=== PATIENT | female | born 1975 | race Caucasian/White ===

== ENCOUNTER 2020-11-10 09:35 | Emergency (ER) | payer OTHER ==
[2020-11-10 10:12] VITALS: BMI 31.2
[2020-11-10] MEDS ORDERED: SODIUM CHLORIDE 0.9% 1000 ML INFUS.BAG IV ONE (10:29)
[2020-11-10] MEDS ORDERED: ACETAMINOPHEN 1000 MG/100 ML BAG IVPB ONE (10:29)
[2020-11-10 10:49] VITALS: TEMP 99
[2020-11-10] MEDS ORDERED: ACETAMINOPHEN INJECTION 100 ML IVPB ONE (11:17)
[2020-11-10] MEDS ORDERED: ALBUTEROL SO4 HFA INHALER IH ONE ×2 (11:20→11:28)
[2020-11-10] MEDS ORDERED: ALBUTEROL SO4 0.042% IH SOL 1.25 MG/3 ML VIAL.NEB NEB ONE (11:22)
[2020-11-10 11:30] LABS: BASO % 0.4 % (0-2.0); EOS % 0.2 % (0-4.5); HEMATOCRIT 25.5 % (32.4-45.2); HEMOGLOBIN 7.8 GM/dL (10.7-15.3); LYMPH % 11.6 % (8-40); MCH 20.8 pg (25.7-33.7); MCHC 30.4 g/dl (32.0-36.0); MEAN CELL VOLUME 68.5 fl (80-96); MEAN PLT VOLUME 8.7 fl (7.5-11.1); MONO % 7.4 % (3.8-10.2); NEUT % 80.4 % (42.8-82.8); PLATELET COUNT 241 K/MM3 (134-434); RBC 3.72 M/mm3 (3.60-5.2); WHITE BLOOD COUNT 6.1 K/mm3 (4.0-10.0)
[2020-11-10 11:38] LABS: INR 1.28 (0.83-1.09); PROTHROMBIN TIME (PATIENT) 15.6 SEC (9.7-13.0)
[2020-11-10 11:41] LABS: ACTIVATED PTT 27.2 SECONDS (25.2-36.5)
[2020-11-10 11:50] LABS: CHLORIDE 100 mmol/L (98-107); SODIUM 133 mmol/L (136-145)
[2020-11-10 11:52] LABS: CALCIUM 8.4 mg/dL (8.5-10.1)
[2020-11-10 11:53] LABS: ALBUMIN 3.8 g/dl (3.4-5.0); ANION GAP 10 MMOL/L (8-16); BLOOD UREA NITROGEN 5.8 mg/dL (7-18); CO2 24 mmol/L (21-32); GLUCOSE,RANDOM 304 mg/dL (74-106)
[2020-11-10 11:56] LABS: CREATININE 0.8 mg/dL (0.55-1.3); SGOT/AST 28 U/L (15-37); SGPT/ALT 46 U/L (13-61)
[2020-11-10 11:57] LABS: BILIRUBIN,TOTAL 0.3 mg/dL (0.2-1); LDH 218 U/L (84-246)
[2020-11-10 11:58] LABS: TOT PROT 8.3 g/dl (6.4-8.2)
[2020-11-10 11:59] LABS: ALK PHOS 82 U/L (45-117)
[2020-11-10 13:43] VITALS: BP 100/60; PULSE 73
[2020-11-10 14:02] LABS: ANISOCYTOSIS 3+; MACROCYTOSIS 1+; OVALOCYTE 1+; ROULEAU 2+
[2020-11-10 14:04] LABS: URINE APPEARANCE CLEAR; URINE COLOR YELLOW
[2020-11-10 14:05] LABS: URINE BILIRUBIN NEGATIVE (NEGATIVE); URINE GLUCOSE (UA) 3+ (NEGATIVE); URINE KETONE NEGATIVE (NEGATIVE); URINE PROTEIN TRACE (NEGATIVE)
[2020-11-10 14:06] LABS: EPI CELLS 26.8 /uL (0-25.1); HYALINE CASTS 1.28 /uL (0-3.1); URINE BACTERIA 391.8 /uL (0-1359); URINE LEUK ESTERASE NEGATIVE (NEGATIVE); URINE NITRITE NEGATIVE (NEGATIVE); URINE RBC 1.1 /uL (0-23.9); URINE WBC 14.5 /uL (0-25.8)
== END 2020-11-10 14:30 | disposition home or self-care (01) ==
LOC: JER 09:35
PROC: 3E0333Z Introduction of Anti-inflammatory into Peripheral Vein, Percutaneous Approach (ICD-10-PCS; principal; 2020-11-10)
DX: R06.02 Shortness of breath (principal)
CPT/HCPCS: 36415; 71045-TC-FY; 80053; 81003; 82550; 82728; 83605; 83615; 84484; 84703; 85025; 85379; 85610; 85730; 86140; 87040; 87077; 87086; 99285-25; C9803; J0131; U0003

== ENCOUNTER 2023-04-01 10:55 | Emergency (ER) | payer OTHER ==
[2023-04-01 10:59] VITALS: RESP 18; BMI 29.2
[2023-04-01] MEDS ORDERED: ACETAMINOPHEN 1000 MG/100 ML BAG IVPB ONE (11:55)
[2023-04-01] MEDS ORDERED: ACETAMINOPHEN INJECTION 100 ML IVPB ONE (12:11)
[2023-04-01 12:28] LABS: BASO % 2.1 % (0-2.0); EOS % 2.4 % (0-4.5); HEMATOCRIT 27.9 % (32.4-45.2); HEMOGLOBIN 8.1 GM/dL (10.7-15.3); MEAN CELL VOLUME 62.2 fl (80-96); MEAN PLT VOLUME 8.9 fl (7.5-11.1); MONO % 7.2 % (3.8-10.2); NEUT % 55.3 % (42.8-82.8); PLATELET COUNT 345 10^3/uL (134-434); RBC 4.49 M/mm3 (3.60-5.2); RDW 21.4 % (11.6-15.6); WHITE BLOOD COUNT 7.5 K/mm3 (4.0-10.0)
[2023-04-01 12:32] LABS: MCH 18.1 pg (25.7-33.7)
[2023-04-01 12:49] LABS: POTASSIUM 4.2 mmol/L (3.5-5.1)
[2023-04-01 12:51] LABS: BLOOD UREA NITROGEN 10.7 mg/dL (7-18); CALCIUM 9.7 mg/dL (8.5-10.1)
[2023-04-01 12:55] LABS: CREATININE 0.7 mg/dL (0.55-1.3)
[2023-04-01 12:56] LABS: BILIRUBIN,TOTAL 0.3 mg/dL (0.2-1); TOT PROT 8.1 g/dl (6.4-8.2)
[2023-04-01 13:05] LABS: ANISOCYTOSIS 3+
[2023-04-01 14:48] VITALS: BP 111/76; PULSE 68; TEMP 98
== END 2023-04-01 16:04 | disposition home or self-care (01) ==
LOC: JER 10:55
PROC: 3E033GC Introduction of Other Therapeutic Substance into Peripheral Vein, Percutaneous Approach (ICD-10-PCS; principal; 2023-04-01)
DX: R07.89 Other chest pain (principal)
CPT/HCPCS: 36415; 71046-TC-FY; 80053; 84484; 84703; 85025; 86850; 86900; 86901; 93005; 93010; 96374; 99285-25

== ENCOUNTER 2023-06-11 10:02 | Emergency (ER) | payer OTHER ==
[2023-06-11 10:05] VITALS: BP 127/57; BMI 29.2
[2023-06-11] MEDS ORDERED: SODIUM CHLORIDE 0.9% 500 ML INFUS.BAG IV ONE (10:26)
[2023-06-11] MEDS ORDERED: ONDANSETRON 4 MG/2 ML VIAL IVPUSH ONE (10:26)
[2023-06-11] MEDS ORDERED: ACETAMINOPHEN 1000 MG/100 ML BAG IVPB ONE (10:26)
[2023-06-11] MEDS ORDERED: ACETAMINOPHEN INJECTION 100 ML IVPB ONE (10:41)
[2023-06-11] MEDS ORDERED: ONDANSETRON 4 MG/2 ML VIAL ONE (10:41)
[2023-06-11 11:06] VITALS: PULSE 90; RESP 17; TEMP 98.4
[2023-06-11 12:11] LABS: EPI CELLS >36 /uL (0-25.1); HYALINE CASTS 1 /uL (0-3.1); URINE APPEARANCE CLEAR; URINE BACTERIA 311 /uL (0-1359); URINE BILIRUBIN NEGATIVE (NEGATIVE); URINE COLOR YELLOW; URINE GLUCOSE (UA) TRACE (NEGATIVE); URINE KETONE TRACE (NEGATIVE); URINE LEUK ESTERASE NEGATIVE (NEGATIVE); URINE NITRITE NEGATIVE (NEGATIVE); URINE PROTEIN 1+ (NEGATIVE); URINE RBC 92 /uL (0-23.9); URINE UROBILINOGEN 0.2 mg/dL (0.2-1.0); URINE WBC 20 /uL (0-25.8)
[2023-06-11 12:21] LABS: HCG,QUALITATIVE URINE Negative
[2023-06-11 12:45] LABS: POTASSIUM 4.5 mmol/L (3.5-5.1)
[2023-06-11 12:47] LABS: CALCIUM 9.5 mg/dL (8.5-10.1)
[2023-06-11 12:48] LABS: ALBUMIN 4.2 g/dl (3.4-5.0); BLOOD UREA NITROGEN 11.8 mg/dL (7-18)
[2023-06-11 12:51] LABS: CREATININE 0.8 mg/dL (0.55-1.3)
[2023-06-11 12:52] LABS: BILIRUBIN,TOTAL 0.3 mg/dL (0.2-1); TOT PROT 8.3 g/dl (6.4-8.2)
[2023-06-11 13:23] LABS: BASO % 1.4 % (0-2.0); EOS % 2.5 % (0-4.5); HEMATOCRIT 25.4 % (32.4-45.2); HEMOGLOBIN 7.1 GM/dL (10.7-15.3); LYMPH % 32.6 % (8-40); MCHC 28.1 g/dl (32.0-36.0); MEAN CELL VOLUME 59.5 fl (80-96); MEAN PLT VOLUME 8.6 fl (7.5-11.1); NEUT % 55.5 % (42.8-82.8); PLATELET COUNT 443 10^3/uL (134-434); RBC 4.27 M/mm3 (3.60-5.2); RDW 20.2 % (11.6-15.6); WHITE BLOOD COUNT 7.3 K/mm3 (4.0-10.0)
[2023-06-11 13:31] LABS: MCH 16.7 pg (25.7-33.7)
[2023-06-11 15:04] LABS: ANISOCYTOSIS 2+; OVALOCYTE 1+; PLATELET ESTIMATE INCREASED; TEAR DROP CELLS 1+
== END 2023-06-11 15:29 | disposition home or self-care (01) ==
LOC: JER 10:02
PROC: 3E033NZ Introduction of Analgesics, Hypnotics, Sedatives into Peripheral Vein, Percutaneous Approach (ICD-10-PCS; principal; 2023-06-11)
PROC: 3E033GC Introduction of Other Therapeutic Substance into Peripheral Vein, Percutaneous Approach (ICD-10-PCS; 2023-06-11)
DX: R10.33 Periumbilical pain (principal); R11.2 Nausea with vomiting, unspecified
CPT/HCPCS: 36415; 74177-TC; 80053; 81003; 83690; 84703; 85025; 87086; 99285-25; Q9967

== ENCOUNTER 2023-06-19 11:14 | Emergency (ER) | payer OTHER ==
[2023-06-19 11:35] VITALS: BMI 32.0
[2023-06-19] MEDS ORDERED: FAMOTIDINE 20 MG/50 ML IVPB 20 MG/50 ML MG IVPB ONE ×2 (12:58→14:27)
[2023-06-19] MEDS ORDERED: ACETAMINOPHEN 1000 MG/100 ML BAG IVPB ONE (12:58)
[2023-06-19] MEDS ORDERED: MAG HYDROX/AL HYDROX/SIMETH 30 ML UNIT-DOSE CUP PO ONE (12:58)
[2023-06-19] MEDS ORDERED: MAG HYDROX/AL HYDROX/SIMETH 30 ML UNIT-DOSE CUP ONE (14:27)
[2023-06-19] MEDS ORDERED: ACETAMINOPHEN INJECTION 100 ML IVPB ONE (14:27)
[2023-06-19 16:11] LABS: BASO % 2.2 % (0-2.0); EOS % 2.5 % (0-4.5); HEMATOCRIT 24.7 % (32.4-45.2); LYMPH % 39.7 % (8-40); MEAN CELL VOLUME 59.8 fl (80-96); MEAN PLT VOLUME 8.4 fl (7.5-11.1); MONO % 7.5 % (3.8-10.2); NEUT % 48.1 % (42.8-82.8); PLATELET COUNT 354 10^3/uL (134-434); RBC 4.14 M/mm3 (3.60-5.2); RDW 20.9 % (11.6-15.6); WHITE BLOOD COUNT 6.6 K/mm3 (4.0-10.0)
[2023-06-19 16:16] LABS: HEMOGLOBIN 6.7 GM/dL (10.7-15.3); MCH 16.1 pg (25.7-33.7)
[2023-06-19 16:30] LABS: POTASSIUM 4.5 mmol/L (3.5-5.1)
[2023-06-19 16:32] LABS: CALCIUM 9.1 mg/dL (8.5-10.1)
[2023-06-19 16:33] LABS: ALBUMIN 3.9 g/dl (3.4-5.0); BLOOD UREA NITROGEN 8.6 mg/dL (7-18)
[2023-06-19 16:36] LABS: CREATININE 0.7 mg/dL (0.55-1.3)
[2023-06-19 16:37] LABS: BILIRUBIN,TOTAL 0.2 mg/dL (0.2-1); TOT PROT 8.1 g/dl (6.4-8.2)
[2023-06-19 17:32] LABS: ANISOCYTOSIS 3+; MACROCYTOSIS 0
[2023-06-19 20:36] VITALS: BP 126/69; PULSE 79; RESP 18; TEMP 98.2
== END 2023-06-20 00:06 | disposition home or self-care (01) ==
LOC: JER 11:14
PROC: 3E033GC Introduction of Other Therapeutic Substance into Peripheral Vein, Percutaneous Approach (ICD-10-PCS; principal; 2023-06-19)
PROC: 3E033NZ Introduction of Analgesics, Hypnotics, Sedatives into Peripheral Vein, Percutaneous Approach (ICD-10-PCS; 2023-06-19)
DX: R10.13 Epigastric pain (principal); D64.9 Anemia, unspecified; R11.0 Nausea; R10.11 Right upper quadrant pain
CPT/HCPCS: 36415; 36430; 76705-TC; 80053; 83690; 85025; 86850; 86900; 86901; 86922; 99284-25; P9058

== ENCOUNTER 2023-09-02 11:47 | Emergency (ER) | payer OTHER ==
[2023-09-02 12:03] VITALS: BP 119/53; PULSE 82; RESP 20; TEMP 98.1; BMI 28.3
[2023-09-02] MEDS ORDERED: DIPHTH,PERTUSS(ACELL),TET 0.5 ML DISP.SYRIN IM ONE ×2 (12:27→12:33)
[2023-09-02] MEDS ORDERED: SULFAMETHOXAZOLE/TRIMETHOPRIM 800MG/160MG D.S. TABLET PO ONE (12:27)
[2023-09-02] MEDS ORDERED: SULFAMETHOXAZOLE/TRIMETHOPRIM 800MG/160MG D.S. TABLET ONE (12:33)
== END 2023-09-02 13:49 | disposition home or self-care (01) ==
LOC: JERFT 11:47
PROC: 3E0234Z Introduction of Serum, Toxoid and Vaccine into Muscle, Percutaneous Approach (ICD-10-PCS; principal; 2023-09-02)
DX: S61.412A Laceration without foreign body of left hand, initial encounter (principal); W26.8XXA Contact with other sharp object(s), not elsewhere classified, initial encounter; Y92.9 Unspecified place or not applicable
CPT/HCPCS: 90471; 90715; 99283-25

== ENCOUNTER 2023-11-11 10:41 | Emergency (ER) | payer OTHER ==
[2023-11-11 10:45] VITALS: BP 117/71; PULSE 76; RESP 20; TEMP 98.4; BMI 35.2
[2023-11-11] MEDS ORDERED: ONDANSETRON 4 MG/2 ML VIAL IVPUSH ONE (12:28)
[2023-11-11] MEDS ORDERED: ACETAMINOPHEN 1000 MG/100 ML BAG IVPB ONE (12:28)
[2023-11-11] MEDS ORDERED: SODIUM CHLORIDE 0.9% 500 ML INFUS.BAG IV ONE (12:28)
[2023-11-11] MEDS ORDERED: ONDANSETRON 4 MG/2 ML VIAL ONE (12:59)
[2023-11-11] MEDS ORDERED: ACETAMINOPHEN INJECTION 100 ML IVPB ONE (12:59)
[2023-11-11 13:48] LABS: EPI CELLS 18 /uL (0-25.1); HYALINE CASTS 0 /uL (0-3.1); PH,URINE 6.5 (5.0-8.0); URINE APPEARANCE CLEAR; URINE BACTERIA 143 /uL (0-1359); URINE BILIRUBIN NEGATIVE (NEGATIVE); URINE COLOR YELLOW; URINE GLUCOSE (UA) 3+ (NEGATIVE); URINE KETONE NEGATIVE (NEGATIVE); URINE LEUK ESTERASE NEGATIVE (NEGATIVE); URINE NITRITE NEGATIVE (NEGATIVE); URINE PROTEIN NEGATIVE (NEGATIVE); URINE RBC 9 /uL (0-23.9); URINE UROBILINOGEN 0.2 mg/dL (0.2-1.0); URINE WBC 19 /uL (0-25.8)
[2023-11-11 13:49] LABS: BASO % 0.4 % (0-2.0); EOS % 2.7 % (0-4.5); HEMATOCRIT 38.9 % (32.4-45.2); HEMOGLOBIN 11.5 GM/dL (10.7-15.3); LYMPH % 32.3 % (8-40); MCH 20.3 pg (25.7-33.7); MCHC 29.5 g/dl (32.0-36.0); MEAN CELL VOLUME 68.8 fl (80-96); MEAN PLT VOLUME 9.2 fl (7.5-11.1); MONO % 5.6 % (3.8-10.2); RBC 5.65 M/mm3 (3.60-5.2); WHITE BLOOD COUNT 7.8 K/mm3 (4.0-10.0)
[2023-11-11 13:50] LABS: PLATELET COUNT 216 10^3/uL (134-434)
[2023-11-11 14:06] LABS: POTASSIUM 4.5 mmol/L (3.5-5.1)
[2023-11-11 14:07] LABS: CALCIUM 9.6 mg/dL (8.5-10.1)
[2023-11-11 14:08] LABS: ALBUMIN 3.8 g/dl (3.4-5.0); BLOOD UREA NITROGEN 11.9 mg/dL (7-18)
[2023-11-11] MEDS ORDERED: MAG HYDROX/AL HYDROX/SIMETH -MYLANTA- ORAL SUSPENSION PO ONE (14:10)
[2023-11-11] MEDS ORDERED: FAMOTIDINE 20 MG/50 ML IVPB 20 MG/50 ML MG IVPB ONE (14:10)
[2023-11-11 14:11] LABS: CREATININE 0.7 mg/dL (0.55-1.3)
[2023-11-11 14:12] LABS: BILIRUBIN,TOTAL 0.1 mg/dL (0.2-1); TOT PROT 7.8 g/dl (6.4-8.2)
[2023-11-11] MEDS ORDERED: MAG HYDROX/AL HYDROX/SIMETH 30 ML UNIT-DOSE CUP ONE (14:21)
[2023-11-11] MEDS ORDERED: FAMOTIDINE 10 MG/ML VIAL IVPB ONE (14:21)
[2023-11-11 14:27] LABS: ANISOCYTOSIS 3+; MACROCYTOSIS 2+
== END 2023-11-11 17:20 | disposition home or self-care (01) ==
LOC: JER 10:41
PROC: 3E033GC Introduction of Other Therapeutic Substance into Peripheral Vein, Percutaneous Approach (ICD-10-PCS; principal; 2023-11-11)
PROC: 3E033NZ Introduction of Analgesics, Hypnotics, Sedatives into Peripheral Vein, Percutaneous Approach (ICD-10-PCS; 2023-11-11)
PROC: 3E033GC Introduction of Other Therapeutic Substance into Peripheral Vein, Percutaneous Approach (ICD-10-PCS; 2023-11-11)
DX: R10.9 Unspecified abdominal pain (principal); R11.10 Vomiting, unspecified; N39.0 Urinary tract infection, site not specified
CPT/HCPCS: 36415; 74177-TC; 80053; 81003; 83690; 84703; 85025; 87086; 99285-25; Q9967

== ENCOUNTER 2024-01-19 12:27 | Emergency (ER) | payer SELFPAY ==
[2024-01-19 12:47] VITALS: BP 124/63; PULSE 72; RESP 18; TEMP 98; BMI 35.3
[2024-01-19] MEDS ORDERED: ACETAMINOPHEN INJECTION 100 ML IVPB ONE (14:51)
[2024-01-19] MEDS ORDERED: ONDANSETRON 4 MG/2 ML VIAL ONE (14:51)
[2024-01-19] MEDS: ACETAMINOPHEN 1000 MG/100 ML BAG IVPB ONE (14:59)
[2024-01-19] MEDS: ONDANSETRON 4 MG/2 ML VIAL IVPUSH ONE (14:59)
[2024-01-19 15:14] LABS: BASO % 1.1 % (0-2.0); EOS % 4.3 % (0-4.5); HEMATOCRIT 39.4 % (32.4-45.2); HEMOGLOBIN 12.4 GM/dL (10.7-15.3); LYMPH % 36.8 % (8-40); MCH 23.1 pg (25.7-33.7); MCHC 31.4 g/dl (32.0-36.0); MEAN CELL VOLUME 73.4 fl (80-96); MONO % 6.4 % (3.8-10.2); NEUT % 51.4 % (42.8-82.8); PLATELET COUNT 224 10^3/uL (134-434); RBC 5.36 M/mm3 (3.60-5.2); RDW 21.8 % (11.6-15.6); WHITE BLOOD COUNT 7.6 K/mm3 (4.0-10.0)
[2024-01-19 15:25] LABS: PH,URINE 6.5 (5.0-8.0); URINE APPEARANCE CLEAR; URINE BILIRUBIN NEGATIVE (NEGATIVE); URINE COLOR YELLOW; URINE GLUCOSE (UA) 3+ (NEGATIVE); URINE KETONE NEGATIVE (NEGATIVE); URINE LEUK ESTERASE NEGATIVE (NEGATIVE); URINE NITRITE NEGATIVE (NEGATIVE); URINE PROTEIN NEGATIVE (NEGATIVE); URINE UROBILINOGEN 0.2 mg/dL (0.2-1.0)
[2024-01-19 15:47] LABS: POTASSIUM 4.5 mmol/L (3.5-5.1)
[2024-01-19 15:48] LABS: CALCIUM 9.6 mg/dL (8.5-10.1)
[2024-01-19 15:49] LABS: ALBUMIN 3.8 g/dl (3.4-5.0); BLOOD UREA NITROGEN 9.2 mg/dL (7-18)
[2024-01-19 15:52] LABS: CREATININE 0.7 mg/dL (0.55-1.3)
[2024-01-19 15:53] LABS: BILIRUBIN,TOTAL 0.2 mg/dL (0.2-1); TOT PROT 7.8 g/dl (6.4-8.2)
[2024-01-19 16:00] LABS: ANISOCYTOSIS 2+; MACROCYTOSIS 0; OVALOCYTE 1+
== END 2024-01-19 18:25 | disposition home or self-care (01) ==
LOC: JER 12:27
PROC: 3E033NZ Introduction of Analgesics, Hypnotics, Sedatives into Peripheral Vein, Percutaneous Approach (ICD-10-PCS; principal; 2024-01-19)
PROC: 3E033GC Introduction of Other Therapeutic Substance into Peripheral Vein, Percutaneous Approach (ICD-10-PCS; 2024-01-19)
DX: R10.30 Lower abdominal pain, unspecified (principal); R11.0 Nausea; R50.9 Fever, unspecified; R07.9 Chest pain, unspecified; R06.02 Shortness of breath; R19.7 Diarrhea, unspecified; R35.0 Frequency of micturition; R30.0 Dysuria
CPT/HCPCS: 36415; 71045-TC-FY; 74177-TC; 80053; 81003; 84484; 84703; 85025; 87086; 93005; 93010; 99285-25; J0131; Q9967